=== PATIENT | female | born 1995 | race Caucasian/White ===

== ENCOUNTER 2018-03-17 13:48 | Outpatient (REF) | payer OTHER, SELFPAY ==
[2018-03-18 14:17] LABS: Chlamydia Result Negative; GC Result Negative; Specimen Description CERVIX
== END 2018-03-17 14:08 ==
LOC: LBN 13:48
PROVIDERS: PCP Nurse Practitioner Family; Visit Provider Nurse Practitioner Women's Health
DX: Z11.3 Encounter for screening for infections with a predominantly sexual mode of transmission (principal)
CPT/HCPCS: 87491; 87591

== ENCOUNTER 2018-05-12 12:44 | Outpatient (REF) | payer OTHER, SELFPAY | END 2018-05-12 13:04 | LOC: LBN 12:44 | PROVIDERS: PCP Nurse Practitioner Family; Visit Provider Nurse Practitioner Women's Health | DX: R30.0 Dysuria (principal) | CPT/HCPCS: 87086 ==

== ENCOUNTER 2018-11-25 12:46 | Outpatient (REF) | payer BC, OTHER, SELFPAY ==
--- NOTE | 2018-11-25 11:30 | PAPFT_PTH ---
PATIENT: ILDA ANDREWS LOC: [facility] U#:[id number] AGE/SX: 23/F ROOM: RE11/25/[address]: Grace Smith NP : 1995 BED: DIS: 11/25/2018 SPEC #: [id number] RECD: 11/25/18 17:32 STATUS: MELISSA REFco #: [id number] SETH: 11/25/18 11:[address]: Grace Smith NP DEPT: [facility] Cytology RECD BY: Anita Mack ENTERED: 11/25/18 17:32 SP TYPE: PAPFT OTHR DR: Jackie Almanza Tissues: 1 - CX/ENDOCX FOR PAP SMEARS Procedures: PAP THIN PREP/[facility] Screening Comments: [id number]
== END 2018-11-25 13:06 ==
LOC: LBN 12:46
PROVIDERS: PCP Nurse Practitioner Family; Visit Provider Nurse Practitioner Women's Health
DX: Z12.4 Encounter for screening for malignant neoplasm of cervix (principal)
CPT/HCPCS: 88142

== ENCOUNTER 2019-01-31 10:47 | Outpatient (REF) | payer BC, OTHER, SELFPAY ==
[2019-02-01 13:55] LABS: Chlamydia Result Negative (Negative); GC Result Negative (Negative); Specimen Description CERVIX
== END 2019-01-31 11:07 ==
LOC: LBN 10:47
PROVIDERS: PCP Nurse Practitioner Family; Visit Provider Nurse Practitioner Women's Health
DX: Z11.3 Encounter for screening for infections with a predominantly sexual mode of transmission (principal)
CPT/HCPCS: 87491; 87591